=== PATIENT | male | born 1940 | race Caucasian/White ===

== ENCOUNTER 2019-04-17 03:22 | Emergency (ER) | payer OTHER ==
[~2019-04-17] VITALS: Ht 182.9 cm; Wt 86.2 kg
[2019-04-17 03:29] VITALS: Ht 182.9 cm; Wt 86.2 kg
[2019-04-17 06:44] VITALS: BP 150/89
== END 2019-04-17 06:44 | disposition home or self-care (01) ==
LOC: ED 03:22
DX: S46.912A Strain of unspecified muscle, fascia and tendon at shoulder and upper arm level, left arm, initial encounter (principal); I10 Essential (primary) hypertension; M54.10 Radiculopathy, site unspecified; Z98.890 Other specified postprocedural states; X58.XXXA Exposure to other specified factors, initial encounter; Y93.89 Activity, other specified; Y92.89 Other specified places as the place of occurrence of the external cause; Y99.8 Other external cause status
CPT/HCPCS: J1885